=== PATIENT | female | born 1990 | race American Indian/Alaskan Native ===

== ENCOUNTER 2017-04-16 21:56 | Emergency (ER) | payer MEDICAID ==
--- NOTE | 2017-04-16 22:16 | OBDCSUM ---
Datetime: 04/16/2017 22:13 Discharged to, Provider: Home Follow up at, Provider: wednesday Disch Instr Activity: Normal activity Follow up in weeks, Provider: dr babar Chen Activity Restrictions: Minimize stair-climbing; No sexual activity; Nothing in vagina - Interc ourse, tampons, douche Discharge Comment, Provider: labor ins given o hyraion f/u on wednesday Discharge Diagnosis Prov Other: 38wee false labor
--- NOTE | 2017-04-16 22:16 | OBHP ---
Datetime: 04/16/2017 22:11 IP Adm Impression: Term, intrauterine IP Admit Plan: Discharge home Admit Comment, IP Provider: at 38weeks came with ctxs started in the afternoon, irrg, no vb,lof ,+fm. obhx 2 x pmh den med pnv all nkda psh den soch denies ve closed a/p at 38weeks false labor labor ins given o hyraion f/u on wednesday dr eckert aware Pelvic Type - PN: Adequate Extremities - PN: Normal Abdomen - PN: Normal Back - PN: Normal Breast - PN: Normal Lungs - PN: Normal Heart - PN: Normal Thyroid - PN: Normal Neurologic - PN: Normal HEENT - PN: Normal General - PN: Normal FHR - Baseline A Provider: 130 Contraction Comments Provider: q1-7 EGA AdmitDate IP: 38.0 Vital Signs Provider: Reviewed; Within Normal Limits IP Chief Complaint: Uterine contractions NICHD Variability Prov Fetus A: Moderate 6-25bpm NICHD Accel Fetus A IP Provider: 15X15 FHR Category Provider Fetus A: Category I Dilatation, Provider: 0 Effacement, Provider: 0 Station, Provider: -3 Genitourinary Exam: Normal DTRs - PN: Normal
== END 2017-04-16 22:39 | disposition home or self-care (01) ==
LOC: C.EROB 21:56
DX: O47.1 False labor at or after 37 completed weeks of gestation (principal); Z3A.38 38 weeks gestation of pregnancy

== ENCOUNTER 2017-04-25 19:23 | Inpatient (IN) | payer MEDICAID ==
[2017-04-25 19:36] VITALS: BMI 38.2
--- NOTE | 2017-04-25 19:44 | OBHP ---
Datetime: 04/25/2017 19:41 IP Adm Impression: Term, intrauterine IP Admit Plan: Admit to unit; Initiate labor induction protocol Admit Comment, IP Provider: at 39.2weeks came her for induction of labor. c/o occ ctxs, no vb,l of,+fm. obhx 2 x pmh den med pnv all nkda psh den soch denie a/p at 39+weeks her for induction of labor admit yo l_d npo/ivf labs cont jessie and efm painmagement cervidil Dr Catalan aware. anticipate Pelvic Type - PN: Adequate Extremities - PN: Normal Abdomen - PN: Normal Back - PN: Normal Breast - PN: Not Done Lungs - PN: Normal Heart - PN: Normal Thyroid - PN: Not Done Neurologic - PN: Normal HEENT - PN: Normal General - PN: Normal FHR - Baseline A Provider: 130 Contraction Comments Provider: occ Comments, ACOG Physical Exam: gravid,non tenderext no edema, no calf ten IP Hx Assessment: The History has been Reviewed and is Current EGA AdmitDate IP: 39.2 Vital Signs Provider: Reviewed; Within Normal Limits IP Chief Complaint: Uterine contractions; Scheduled induction of labor NICHD Variability Prov Fetus A: Moderate 6-25bpm NICHD Accel Fetus A IP Provider: 15X15 FHR Category Provider Fetus A: Category I Genitourinary Exam: Normal DTRs - PN: Normal
[2017-04-25] MEDS ORDERED: Nalbuphine 20 mg/ml Inj (1 ml) IVP PRN (19:45)
[2017-04-25] MEDS ORDERED: Aluminum Hydroxide/Magnesium Hydroxide Susp (30 mL) PO ONE (19:55)
--- NOTE | 2017-04-25 20:07 | OBPN ---
Datetime: 04/25/2017 20:05 Contraction Comments Provider: occ FHR - Baseline A Provider: 130 IP Progress Note Comment: p was examined at bbed side. ve ft/50/-3 cervodil placed.r/a/b discussed NICHD Accel Fetus A IP Provider: 15X15 FHR Category Provider Fetus A: Category I NICHD Variability Prov Fetus A: Moderate 6-25bpm Dilatation, Provider: ft Effacement, Provider: 50 Station, Provider: -3 Datetime: 04/25/2017 19:41 Vital Signs Provider: Reviewed; Within Normal Limits
[2017-04-25] MEDS: Lactated Ringer's 1,000 ML IV SCH (20:15)
[2017-04-25 20:33] LABS: BASO # 0.1 K/uL (0.0-0.2); BASO % 0.4 % (0.0-2.0); EOS # 0.1 K/uL (0.0-0.7); EOS % 0.9 % (0.0-4.0); HEMATOCRIT 41.7 % (34.0-47.0); LYMPH # 2.8 K/uL (1.0-4.3); LYMPH % 23.2 % (20.0-40.0); MEAN CELL VOLUME 92.9 fL (81.0-99.0); MEAN CORPUSCULAR HEMOGLOBIN 31.1 pg (27.0-31.0); MEAN CORPUSCULAR HGB CONC 33.5 g/dL (33.0-37.0); MEAN PLATELET VOLUME 12.6 fL (7.2-11.7); MONO # 1.3 K/uL (0.0-0.8); MONO % 10.6 % (0.0-10.0); RED CELL DISTRIBUTION WIDTH 14.1 % (11.5-14.5); WHITE BLOOD COUNT 11.9 K/uL (4.8-10.8)
[2017-04-25] MEDS ORDERED: Aluminum Hydroxide/Magnesium Hydroxide Susp (30 mL) ONE (20:35)
[2017-04-25 20:41] LABS: CHLORIDE 104 mmol/L (98-107); SODIUM 136 mmol/L (132-148)
[2017-04-25 20:42] LABS: POTASSIUM 3.8 mmol/L (3.6-5.2)
[2017-04-25 20:43] LABS: INR 0.9
[2017-04-25 20:44] LABS: ALKALINE PHOSPHATASE 148 U/L (38-126); ALT/SGPT 17 U/L (9-52); AST/SGOT 21 U/L (14-36); BILIRUBIN,DIRECT 0.4 mg/dL (0.0-0.4); BILIRUBIN,TOTAL 0.4 mg/dL (0.2-1.3); BLOOD UREA NITROGEN 8 mg/dL (7-17); CALCIUM 8.9 mg/dl (8.6-10.4); CARBON DIOXIDE 23 mmol/L (22-30); GFR AFRICAN-AMERICAN > 60; GLUCOSE,RANDOM 88 mg/dL (65-105); TOTAL PROTEIN 6.5 g/dL (6.3-8.3)
[2017-04-25 20:46] LABS: RBC URINE < 1 /hpf (0-3); URINE BILIRUBIN NEGATIVE (NEGATIVE); URINE BLOOD NEGATIVE (NEGATIVE); URINE CALCIUM OXALATE CRYSTALS OCC /hpf (<OCC); URINE COLOR Yellow (YELLOW); URINE GLUCOSE (UA) NORMAL (Normal); URINE KETONE NEGATIVE (NEGATIVE); URINE LEUKOCYTE ESTERASE NEG Leu/uL (Negative); URINE PROTEIN NEGATIVE (NEGATIVE); URINE UROBILINOGEN NORMAL mg/dL (0.2-1.0); WBC URINE 2 /hpf (0-5)
--- NOTE | 2017-04-26 07:53 | OBPN ---
Datetime: 04/26/2017 07:47 IP Progress Plan Other: Pitocin augmentation IP Progress Impression: Normal progression of labor; Reassuring heart rate IP Informed Consent Obtain: Vaginal Delivery; Risks, Benefits and Alternatives Discussed IP Procedures: Sterile Vag Exam IP Progress Plan: Continue present management; Induction Membranes, Provider: Intact FHR - Baseline A Provider: 130 Gestation - Est Wks by US: 39.0 Weight - Estimated: 3400 Presentation-Admit: Vertex IP Progress Note Comment: Cervidil removed. Reassuring Status NICHD Accel Fetus A IP Provider: 15X15 FHR Category Provider Fetus A: Category I NICHD Variability Prov Fetus A: Moderate 6-25bpm Dilatation, Provider: 2-3 Effacement, Provider: 50 Station, Provider: -2 NICHD Decel Fetus A IP Provider: None
[2017-04-26] MEDS ORDERED: Oxytocin 30 UNIT 30 UNITS/500 ML BAG IV SCH (08:00)
[2017-04-26] MEDS ORDERED: Oxytocin 30 UNIT 30 UNITS/500 ML BAG IV ONE (08:11)
[2017-04-26] MEDS ORDERED: Nalbuphine 20 mg/ml Inj (1 ml) ONE (10:48)
[2017-04-26] MEDS: Lactated Ringer's 1,000 ML IV SCH ×2 (10:58→18:52)
--- NOTE | 2017-04-26 13:44 | OBPN ---
Datetime: 04/26/2017 13:38 IP Progress Impression: Normal progression of labor; Reassuring heart rate IP Informed Consent Obtain: Vaginal Delivery; Risks, Benefits and Alternatives Discussed IP Procedures: Sterile Vag Exam IP Progress Plan: Continue present management; Induction; Anticipate Vaginal Delivery Membranes, Provider: Intact Contraction Comments Provider: Q2min. FHR - Baseline A Provider: 125 Gestation - Est Wks by US: 39.0 Weight - Estimated: 3500 Presentation-Admit: Vertex IP Progress Note Comment: Latent Phase of Labor. Reassuring Status Vital Signs Provider: Reviewed; Within Normal Limits NICHD Accel Fetus A IP Provider: 15X15 FHR Category Provider Fetus A: Category I NICHD Variability Prov Fetus A: Moderate 6-25bpm Dilatation, Provider: 3-4 Effacement, Provider: 60 Station, Provider: -2 NICHD Decel Fetus A IP Provider: None
[2017-04-26] MEDS ORDERED: Bupivacaine 0.125%/FentaNYL 200 ML EPI ONE (15:16)
--- NOTE | 2017-04-26 21:15 | OBPN ---
Datetime: 04/26/2017 21:08 IP Progress Impression: Normal progression of labor; Reassuring heart rate IP Informed Consent Obtain: Vaginal Delivery; Risks, Benefits and Alternatives Discussed IP Procedures: Sterile Vag Exam IP Progress Plan: Continue present management; Induction Membranes, Provider: Ruptured Contraction Comments Provider: Q 2min. FHR - Baseline A Provider: 150 Gestation - Est Wks by US: 39.0 Weight - Estimated: 3500 Presentation-Admit: Vertex IP Progress Note Comment: Active Labor. Reassuring Status Vital Signs Provider: Reviewed; Within Normal Limits FHR Category Provider Fetus A: Category I NICHD Variability Prov Fetus A: Moderate 6-25bpm Dilatation, Provider: 5 Effacement, Provider: 80 Station, Provider: -2 NICHD Decel Fetus A IP Provider: None
--- NOTE | 2017-04-27 01:17 | OBPN ---
Datetime: 04/27/2017 01:12 IP Progress Impression: Normal progression of labor; Reassuring heart rate IP Informed Consent Obtain: Vaginal Delivery; Risks, Benefits and Alternatives Discussed IP Procedures: Sterile Vag Exam IP Progress Plan: Continue present management; Augmentation Contraction Comments Provider: Q 2min FHR - Baseline A Provider: 150 Gestation - Est Wks by US: 39.0 Weight - Estimated: 3500 Presentation-Admit: Vertex IP Progress Note Comment: Active Labor .Reassuring Status. Anticipate Vital Signs Provider: Reviewed; Within Normal Limits NICHD Accel Fetus A IP Provider: 15X15 FHR Category Provider Fetus A: Category I NICHD Variability Prov Fetus A: Moderate 6-25bpm Dilatation, Provider: 8 Effacement, Provider: 80 Station, Provider: -1 NICHD Decel Fetus A IP Provider: None
--- NOTE | 2017-04-27 07:15 | OBDS ---
DELIVERY PERSONNEL Delivery Doctor: Zuleyma Catalan MD Paper Roll Machine Operator: Chery Hanley RN Anesthesiologist: Dr. Joseph MATERNAL INFORMATION Delivery Anesthesia: Epidural Medications in Delivery: pitocin 20 units Estimated Blood Loss (ml): 150 Placenta Cultured: No Maternal Complications: None RN Comments: to a live baby girl with 9/9 LABOR SUMMARY EDC: 04/30/2017 00:00 No. Babies in Womb: 1 Attempted: No Labor Anesthesia: Epidural LABOR INFORMATION Onset of Labor: 04/26/2017 15:00 Complete Dilatation: 04/27/2017 06:43 Cervical Ripening Agents: Cervidil (Annotations: removed by Dr. Catalan) Oxytocin: Augmentation Group B Beta Strep: Negative Steroids Given: None Reason Steroids Not Administered: Not Applicable MEMBRANES Membranes Rupture Method: Artificial Rupture of Membranes: 04/26/2017 20:02 Length of Rupture (hrs): 10.83 Amniotic Fluid Color: Clear Amniotic Fluid Amount: Moderate Amniotic Fluid Odor: Normal STAGES OF LABOR Stage 1 hrs: 15 Stage 1 min: 43 Stage 2 hrs: 0 Stage 2 min: 9 Stage 3 hrs: 0 Stage 3 min: 5 Total Time in Labor hrs: 15 Total Time in Labor min: 57 VAGINAL DELIVERY Episiotomy: None Laceration Extension: N/A Laceration Type: None Laceration Repair Note: TO A VIABLE GIRL, 'S 9/9 Initial Vag Sponge Count: 10 Final Vag Sponge Count: 10 Initial Vag Sharps Count: 0 Final Vag Sharps Count: 0 Sponge Count Correct: Yes; Vaginal Sweep Performed Count Comment: correct BABY A INFORMATION Delivery Date/Time: 04/27/2017 06:52 Method of Delivery: Vaginal Born in Route : No : N/A Forceps: N/A Vacuum Extraction: N/A Shoulder Dystocia : No SHOULDER DYSTOCIA BABY A Infant Delivery Date/Time: 04/27/2017 06:52 PRESENTATION/POSITION BABY A Presentation: Cephalic Cephalic Presentation: Vertex Vertex Position: Left Occipital Anterior Breech Presentation: N/A PLACENTA INFORMATION BABY A Placenta Delivery Time : 04/27/2017 06:57 Placenta Method of Delivery: Spontaneous Placenta Status: Delivered SCORES BABY A Heart Rate 1 min: >100 bpm Resp Effort 1 min: Good Cry Reflex Irritability 1 min: Cough or Sneeze or Pulls Away Muscle Tone 1 min: Active Motion Color 1 min: Body Mcallister, Extremities Blue SCORE 1 MIN: 9 Heart Rate 5 min: >100 bpm Resp Effort 5 min: Good Cry Reflex Irritability 5 min: Cough or Sneeze or Pulls Away Muscle Tone 5 min: Active Motion Color 5 min: Body Mcallister, Extremities Blue SCORE 5 MIN: 9 INFANT INFORMATION BABY A Gestational Age at Delivery: 39.4 Gestational Status: Term Infant Outcome : Liveborn Condition : Stable Sex: Female IDENTIFICATION/MEDS BABY A ID Band Number: [id number] ID Band Location: Left Leg; Left Arm Sensor Applied: Yes Sensor Number: [id number] Sensor Location : Cord Clamp WEIGHT/LENGTH BABY A Infant Birthweight (gms): 3220 Infant Weight (lb): 7 Infant Weight (oz): 2 Length Inches: 19.00 Infant Length cms: 48.3 CORD INFORMATION BABY A No. Cord Vessels: 3 Nuchal Cord : N/A Cord Blood Taken: Yes Infant Suction: Mouth ASSESSMENT BABY A Complications: None Physical Findings at Delivery: Within Normal Limits Infant Respirations: Appears Normal Medical Administrative Technician/ALS Called : No Infant Care By: Courtney PETERSON Transferred To: Remains with Mother
[2017-04-27] MEDS: Multiple Vitamins Tab PO SCH (10:26)
--- NOTE | 2017-04-28 07:10 | OBPPN ---
Datetime: 04/28/2017 07:00 PP Pain Prov: Within normal limits PP Nausea Prov: Denies PP Flatus Prov: Yes PP BM Prov: No PP Breasts Prov: Normal PP Heart Prov: Normal PP Lungs Prov: Normal PP Abdomen/Uterus Prov: Normal PP Lochia Prov: Normal PP CVA Tenderness Prov: Normal PP Extremities Prov: Normal PP C/S Incision Prov: Not Applicable PP Progress Prov: Normal PP Impression Prov: Normal progression PP Plan Prov: Continue present management PP Progress Note Prov: S-patient c/o gas pains.denies nausea, vomiting, chest pain, shortness of mague ath, numbness or tingling in hands and feet O-VSS Afebrile Fundus firm and below umbilcius extremities no calf tenderness A/P Patient s/p vaginal delivery ppd 1 doing well -continue routine pp care -follow up am cbc Vital Signs Provider PP: Reviewed; Within Normal Limits
[2017-04-28 07:29] LABS: HEMATOCRIT 37.3 % (34.0-47.0)
[2017-04-28 08:17] VITALS: O2SAT 99
[2017-04-28] MEDS: Multiple Vitamins Tab PO SCH (10:03)
[2017-04-28] MEDS: Simethicone 80 mg Chewtab PO PRN ×2 (10:04→18:55)
--- NOTE | 2017-04-29 07:45 | OBDCSUM ---
Datetime: 04/29/2017 07:43 Discharged to, Provider: Home Follow up at, Provider: 6wee Disch Instr Activity: Normal activity Disch Instr Diet: Regular Discharge Diagnosis, Provider: Term Delivered Follow up in weeks, Provider: clinic Disch Activity Restrictions: No exercising; No lifting; No driving; Minimize walking; Minimize stair -climbing; No sexual activity; Nothing in vagina - [place], tampons, douche Discharge Comment, Provider: [place] home no sex motrin prn f/u in 6weeks
--- NOTE | 2017-04-29 07:45 | OBPPN ---
Datetime: 04/29/2017 07:41 PP Pain Prov: Within normal limits PP Nausea Prov: Denies PP Flatus Prov: Yes PP Abdomen/Uterus Prov: Normal PP Lochia Prov: Normal PP Extremities Prov: Normal PP Comments Phys Exam Prov: fudus below umbl ext no edema,no calf ten PP Impression Prov: Normal progression PP Plan Prov: Discharge PP Progress Note Prov: pt was seen at bed side, pain under control,no n/v, tolerating deit,voiding,m in lochia, flatus= ppd#2 s/p dc home no sex motrin prn f/u in 6weeks Vital Signs Provider PP: Reviewed; Within Normal Limits
[2017-04-29 08:51] VITALS: BP 117/79; PULSE 79; RESP 18; TEMP 97.6
[2017-04-29] MEDS: Simethicone 80 mg Chewtab PO PRN (09:12)
[2017-04-29] MEDS: Multiple Vitamins Tab PO SCH (09:12)
== END 2017-04-29 12:45 | disposition home or self-care (01) | DRG 373 ==
LOC: C.EROB 19:23 → C.4D 19:35 → C.4M 04-27 09:48
PROVIDERS: ADMIT Obstetrics & Gynecology; ATTEND Obstetrics & Gynecology
PROC: 10907ZC Drainage of Amniotic Fluid, Therapeutic from Products of Conception, Via Natural or Artificial Opening (ICD-10-PCS; 2017-04-26)
PROC: 10E0XZZ Delivery of Products of Conception, External Approach (ICD-10-PCS; principal; 2017-04-27)
DX: O80 Encounter for full-term uncomplicated delivery (principal); Z3A.39 39 weeks gestation of pregnancy; Z37.0 Single live birth

== ENCOUNTER 2019-04-14 09:21 | Inpatient (IN) | payer MEDICAID | END 2019-04-16 12:10 | disposition home or self-care (01) | LOC: C.EROB 09:21 → C.4D 09:40 → C.4M 19:00 ==